=== PATIENT | female | born 1995 | race Caucasian/White ===

== ENCOUNTER 2017-12-23 22:12 | Emergency (ER) | payer SELFPAY ==
--- NOTE | 2017-12-23 22:38 | EDM.PDOC ---
ED HPI GENERAL MEDICAL PROBLEM - General Chief Complaint: Chest Pain Stated Complaint: PT HAS TIGHTNESS IN CHEST Time Seen by Provider: 12/23/17 22:36 - History of Present Illness INITIAL COMMENTS - FREE TEXT/NARRATIVE: HISTORY AND PHYSICAL: History of present illness: Patient is a 22-year-old female presents with concern of chest pain described as sharp without associated shortness breath palpitations nausea vomiting or diaphoresis she denies any trauma or other concern. Review of systems: As per history of present illness and below otherwise all systems reviewed and negative. Past medical history: As per history of present illness and as reviewed below otherwise noncontributory. Surgical history: As per history of present illness and as reviewed below otherwise noncontributory. Social history: No reported history of drug or alcohol abuse. Family history: As per history of present illness and as reviewed below otherwise noncontributory. Physical exam: HEENT: Atraumatic, normocephalic, pupils reactive, negative for conjunctival pallor or scleral icterus, mucous membranes moist, throat clear, neck supple, nontender, trachea midline. Lungs: Clear to auscultation, breath sounds equal bilaterally, chest nontender. Heart: S1S2, regular, negative for clicks, rubs, or JVD. Abdomen: Soft, nondistended, nontender. Negative for masses or hepatosplenomegaly. Negative for costovertebral tenderness. Pelvis: Stable nontender. Genitourinary: Deferred. Rectal: Deferred. Extremities: Atraumatic, negative for cords or calf pain. Neurovascular unremarkable. Neuro: Awake, alert, oriented. Cranial nerves II through XII unremarkable. Cerebellum unremarkable. Motor and sensory unremarkable throughout. Exam nonfocal. Diagnostics: Chest x-ray EKG Therapeutics: None Impression: #1 atypical chest pain Definitive disposition and diagnosis as appropriate pending reevaluation and review of above. Chest Pain Score (Numeric/FACES): 7 - Related Data Allergies Allergy/AdvReac Type Severity Reaction Status Date / Time No Known Allergies Allergy Verified 12/23/17 22:14 Home Meds: Home Meds . [No Known Home Meds] 12/23/17 [History] Past Medical History - Past Health History Medical/Surgical History: Denies Medical/Surgical History Social & Family History - Tobacco Use Smoking Status *Q: Never Smoker ED ROS GENERAL - Review of Systems Review Of Systems: ROS reveals no pertinent complaints other than HPI. ED EXAM, GENERAL - Physical Exam Exam: See Below (See dictation) Course - Vital Signs Last Recorded V/S: Last Vital Signs Temp 36.9 C 12/23/17 22:20 Pulse 84 12/23/17 22:20 Resp 18 12/23/17 22:20 BP 148/96 H 12/23/17 22:20 Pulse Ox 97 12/23/17 22:20 - Orders/Labs/Meds Orders: Active Orders 24 hr Category Date Time Status Chest 1V Frontal [CR] Stat Exams 12/23/17 22:24 Ordered Departure - Departure Time of Disposition: 22:37 Disposition: Home, Self-Care 01 Condition: Good Clinical Impression: Atypical chest pain - Discharge Information *PRESCRIPTION DRUG MONITORING PROGRAM REVIEWED*: Not Applicable *COPY OF PRESCRIPTION DRUG MONITORING REPORT IN PATIENT DEE: Not Applicable Referrals: PCP,None [Primary Care Provider] - Additional Instructions: The following information is given to patients seen in the emergency department who are being discharged to home. This information is to outline your options for follow-up care. We provide all patients seen in our emergency department with a follow-up referral. The need for follow-up, as well as the timing and circumstances, are variable depending upon the specifics of your emergency department visit. If you don't have a primary care physician on staff, we will provide you with a referral. We always advise you to contact your personal physician following an emergency department visit to inform them of the circumstance of the visit and for follow-up with them and/or the need for any referrals to a consulting specialist. The emergency department will also refer you to a specialist when appropriate. This referral assures that you have the opportunity for followup care with a specialist. All of these measure are taken in an effort to provide you with optimal care, which includes your followup. Under all circumstances we always encourage you to contact your private physician who remains a resource for coordinating your care. When calling for followup care, please make the office aware that this follow-up is from your recent emergency room visit. If for any reason you are refused follow-up, please contact the [facility] emergency department at and asked to speak to the emergency department charge nurse. Motrin/Tylenol as directed follow-up primary medical doctor as needed as discussed and return as needed as discussed - My Orders Last 24 Hours: My Active Orders 12/23/17 22:24 Chest 1V Frontal [CR] Stat - Assessment/Plan Last 24 Hours: My Active Orders 12/23/17 22:24 Chest 1V Frontal [CR] Stat
[2017-12-23 23:38] LABS: CHLORIDE,CL 107 mmol/L (98-107); SODIUM,NA 140 mmol/L (136-145)
[2017-12-24] MEDS ORDERED: Iopamidol 755 MG/ML 200 ML Multipack Bottle IVPUSH ONE (00:14)
--- NOTE | 2017-12-24 08:58 | CR ---
EXAM DATE: 12/23/17 PATIENT'S AGE: 22 Patient: MAIRLYN REED Facility: [place], [place] Site . Site : 1995 Study: XRay Chest [id number]/22/2018 10:45:29 PM Ordering Physician: Doctor Johnson Final Report: INDICATION: Chest pain TECHNIQUE: Chest radiograph 1 view COMPARISON: None FINDINGS: Mediastinum: The mediastinum is normal in appearance. The heart silhouette is normal in size and morphology. Lung: Both lungs are unremarkable in appearance. Mild enlargement of the central pulmonary vessels noted. No sign of pleural effusion seen. No pneumothorax is identified. Musculoskeletal: Unremarkable for age. IMPRESSION: 1. Mild enlargement of the central pulmonary vessels noted. Pulmonary vascular congestion or hypertension should be considered. Dictated by: Deejay Joe MD @ 12/23/2017 22:47:34 (Electronic Signature) Report Signed by Proxy. HAYLEY
--- NOTE | 2017-12-24 08:59 | CT ---
EXAM DATE: 12/23/17 PATIENT'S AGE: 22 Patient: MARILYN REED Facility: [place], [place] Site . Site : 1995 Study: CT Chest Angio [id number]/23/2018 12:12:50 AM Ordering Physician: Ana Hopkins Final Report: INDICATION: Shortness of breath, Chest pain TECHNIQUE: CT chest with i.v. contrast using pulmonary angiographic technique. Coronal and sagittal reformats were obtained. CONTRAST: 50 mL Isovue 370 COMPARISON: None FINDINGS: Cardiovascular: The pulmonary arteries are unremarkable in enhancement with no evidence of acute pulmonary embolism. The heart has an unremarkable appearance and size. No sign of aneurysm or dissection in the thoracic aorta. Mediastinum: No mass or adenopathy seen. Lung: There is a 3 mm nodule present in the anterior right middle lobe, too small to further characterize. Pleura and pericardium: No sign of pleural effusion seen. No significant pericardial effusion is present. Chest wall and axilla: Mild left axillary adenopathy seen with lymph nodes measuring up to 1 cm. Bone: Unremarkable for age. Upper abdomen: Severe fatty infiltration of the visualized liver is noted. IMPRESSIONS: 1. No CT evidence of pulmonary emboli seen. 2. Severe fatty infiltration of the visualized liver is noted. 3. Mild left axillary adenopathy seen with lymph nodes measuring up to 1 cm. Dictated by Deejay Joe MD @ 12/24/2017 12:26:14 AM Please note that all CT scans at this facility use dose modulation, iterative reconstruction, and/or weight-based dosing when appropriate to reduce radiation dose to as low as reasonably achievable. Dictated by: Deejay Joe MD @ 12/24/2017 00:26:19 (Electronic Signature) Report Signed by Proxy. [facility]
== END 2017-12-24 01:25 | disposition home or self-care (01) ==
LOC: MW.ED 22:12
DX: R07.89 Other chest pain (principal)
CPT/HCPCS: 36415; 71045; 71275; 80053; 81025; 83880; 85025; 93005; 99285; Q9967; 99282

== ENCOUNTER 2020-02-07 06:39 | Day surgery (SDC) | payer OTHER ==
[2020-02-07] MEDS ORDERED: fentaNYL 100 MCG/2 ML SDV ONE (07:20)
[2020-02-07] MEDS ORDERED: Propofol 200 MG/20 ML SDV ONE (07:20)
[2020-02-07] MEDS ORDERED: Midazolam 1 MG/ML 2 ML SDV ONE (07:20)
[2020-02-07] MEDS ORDERED: Lidocaine 2% 5 ML SDV ONE (07:23)
--- NOTE | 2020-02-07 07:32 | PCM.PREANE ---
Preanesthetic Assessment - Anesthesia/Transfusion/Family Hx Anesthesia History: Prior Anesthesia Without Reaction Family History of Anesthesia Reaction: No Transfusion History: No Prior Transfusion(s) - Review of Systems General: No Symptoms Pulmonary: No Symptoms Cardiovascular: No Symptoms Gastrointestinal: No Symptoms Neurological: No Symptoms Other: Reports: None - Physical Assessment NPO Status Date: 02/06/20 Vital Signs: Last Vital Signs Temp 97.0 F 02/07/20 06:50 Pulse 88 02/07/20 06:50 Resp 16 02/07/20 06:50 BP 140/85 02/07/20 06:50 Pulse Ox 98 02/07/20 06:50 Height: 5 ft 6 in Weight: 89.811 kg ASA Class: 2 Mental Status: Alert & Oriented x3 Airway Class: Mallampati = 1 Dentition: Reports: Normal Dentition ROM/Head Extension: Full Lungs: Clear to Auscultation, Normal Respiratory Effort Cardiovascular: Regular Rate, Regular Rhythm - Lab Values: Laboratory Last Values WBC 7.60 K/uL (4.0-11.0) 02/07/20 07:12 RBC 4.57 M/uL (4.30-5.90) 02/07/20 07:12 Hgb 13.5 g/dL (12.0-16.0) 02/07/20 07:12 Hct 40.9 % (36.0-46.0) 02/07/20 07:12 MCV 89.5 fL (80.0-98.0) 02/07/20 07:12 MCH 29.5 pg (27.0-32.0) 02/07/20 07:12 MCHC 33.0 g/dL (31.0-37.0) 02/07/20 07:12 RDW Std Deviation 41.3 fl (28.0-62.0) 02/07/20 07:12 RDW Coeff of Angie 13 % (11.0-15.0) 02/07/20 07:12 Plt Count 203 K/uL (150-400) 02/07/20 07:12 MPV 11.40 fL (7.40-12.00) 02/07/20 07:12 Neut % (Auto) 43.9 % (48.0-80.0) L 02/07/20 07:12 Lymph % (Auto) 43.7 % (16.0-40.0) H 02/07/20 07:12 [place] % (Auto) 9.2 % (0.0-15.0) 02/07/20 07:12 Eos % (Auto) 2.8 % (0.0-7.0) 02/07/20 07:12 Baso % (Auto) 0.4 % (0.0-1.5) 02/07/20 07:12 Neut # (Auto) 3.3 K/uL (1.4-5.7) 02/07/20 07:12 Lymph # (Auto) 3.3 K/uL (0.6-2.4) H 02/07/20 07:12 [place] # (Auto) 0.7 K/uL (0.0-0.8) 02/07/20 07:12 Eos # (Auto) 0.2 K/uL (0.0-0.7) 02/07/20 07:12 Baso # (Auto) 0.0 K/uL (0.0-0.1) 02/07/20 07:12 Nucleated RBC % 0.0 /100WBC 02/07/20 07:12 Nucleated RBCs # 0 K/uL 02/07/20 07:12 - Allergies Allergies/Adverse Reactions: Allergies Allergy/AdvReac Type Severity Reaction Status Date / Time amoxicillin [From Augmentin] Allergy Stomach Verified 02/01/20 09:38 Upset clavulanic acid Allergy Stomach Verified 02/01/20 09:38 [From Augmentin] Upset - Blood Blood Available: No - Anesthesia Plan Pre-Op Medication Ordered: None - Acknowledgements Anesthesia Type Planned: General Anesthesia Pt an Appropriate Candidate for the Planned Anesthesia: Yes Alternatives and Risks of Anesthesia Discussed w Pt/Guardian: Yes Pt/Guardian Understands and Agrees with Anesthesia Plan: Yes PreAnesthesia Questionnaire - Past Health History Medical/Surgical History: Denies Medical/Surgical History HEENT History: Reports: Other (See Below) Other HEENT History: wears glasses/contacts Cardiovascular History: Reports: None Respiratory History: Reports: None Gastrointestinal History: Reports: None Genitourinary History: Reports: None [employer] History: Reports: None Musculoskeletal History: Reports: None Neurological History: Reports: Migraines Psychiatric History: Reports: None Endocrine/Metabolic History: Reports: Obesity/BMI 30+ Hematologic History: Reports: None Immunologic History: Reports: None Oncologic (Cancer) History: Reports: None Dermatologic History: Reports: None - Past Surgical History Head Surgeries/Procedures: Reports: None HEENT Surgical History: Reports: Tonsillectomy Cardiovascular Surgical History: Reports: None Respiratory Surgical History: Reports: None GI Surgical History: Reports: None Female Surgical History: Reports: Breast Biopsy Endocrine Surgical History: Reports: None Neurological Surgical History: Reports: None Musculoskeletal Surgical History: Reports: Arthroscopic Knee, Other (See Below) Other Musculoskeletal Surgeries/Procedures:: right knee arthroscopy, excision cyst on left wrist Oncologic Surgical History: Reports: None Dermatological Surgical History: Reports: None - SUBSTANCE USE Smoking Status *Q: Never Smoker - HOME MEDS Home Medications: Home Meds desogestreL-ethinyl estradioL [Noveber 28 Day Tablet] 1 tab PO DAILY 02/01/20 [History] - CURRENT (IN HOUSE) MEDS Current Meds: Current Medications Discontinued Medications Fentanyl (Sublimaze) Confirm Administered Dose 100 mcg .ROUTE .STK-MED ONE Stop: 02/07/20 07:21 Lidocaine (Xylocaine-Mpf 2%) Confirm Administered Dose 5 ml .ROUTE .STK-MED ONE Stop: 02/07/20 07:24 Midazolam HCl (Versed 1 Mg/Ml) Confirm Administered Dose 2 mg .ROUTE .STK-MED ONE Stop: 02/07/20 07:21 Propofol (Diprivan 20 Ml) Confirm Administered Dose 400 mg .ROUTE .STK-MED ONE Stop: 02/07/20 07:21
[2020-02-07] MEDS ORDERED: Lactated Ringers 1,000 ML IV SCH (08:15)
[2020-02-07] MEDS ORDERED: Dexamethasone 4 MG/ML 5 ML MDV ONE (08:32)
[2020-02-07] MEDS ORDERED: Ondansetron 4 MG/2 ML SDV ONE (08:32)
[2020-02-07] MEDS ORDERED: Ketorolac 30 MG/ML SDV ONE (08:32)
[2020-02-07] MEDS ORDERED: Acetaminophen/HYDROcodone 325-5 MG Tab PO PRN (09:21)
--- NOTE | 2020-02-07 09:29 | PCM.OPNOTE ---
- General Post-Op/Procedure Note Date of Surgery/Procedure: 02/07/20 Operative Procedure(s): Hysteroscopy Dilatation and curettage. Removal of endometrial lesion Findings: Normal sized anteverted uterus Hysteroscopy showed a small fluffy tissue protruding from the endometrial cavity 375ml fluid deficit Pre Op Diagnosis: Abnormal uterine bleeding Post-Op Diagnosis: Abnormal uterine bleeding Anesthesia Technique: General ET Tube Primary Surgeon: Eda Manley Anesthesia Provider: Eirc Rizo Pathology: Endometrial lesion Endometrial curettings Fluid Replacement, Intraop: 900 EBL in mLs: 5 Complications: none Condition: Good Free Text/Narrative:: Intake & Output 02/06/20 02/07/20 02/07/20 22:59 06:59 14:59 Intake Total 950 Balance 950
[2020-02-07] MEDS ORDERED: Haloperidol Lactate 5 MG/ML SDV IM ONE (10:00)
[2020-02-07] MEDS ORDERED: Haloperidol Lactate 5 MG/ML SDV ONE (10:09)
--- NOTE | 2020-02-07 10:44 | PCM.POSTAN ---
POST ANESTHESIA ASSESSMENT - MENTAL STATUS Mental Status: Alert, Oriented - VITAL SIGNS Vital Signs: Last Vital Signs Temp 97.0 F 02/07/20 09:15 Pulse 74 02/07/20 09:45 Resp 16 02/07/20 09:45 BP 119/74 02/07/20 09:45 Pulse Ox 98 02/07/20 09:45 - RESPIRATORY Respiratory Status: Respiratory Rate WNL, Airway Patent, O2 Saturation Stable - CARDIOVASCULAR CV Status: Pulse Rate WNL, Blood Pressure Stable - GASTROINTESTINAL GI Status: No Symptoms - POST OP HYDRATION Hydration Status: Adequate & Stable
--- NOTE | 2020-02-07 11:00 | PCM48HPAN ---
Post Anesthesia Note - EVALUATION WITHIN 48HRS OF ANESTHETIC Vital Signs in Normal Range: Yes Patient Participated in Evaluation: Yes Respiratory Function Stable: Yes Airway Patent: Yes Cardiovascular Function Stable: Yes Hydration Status Stable: Yes Pain Control Satisfactory: Yes Nausea and Vomiting Control Satisfactory: Yes Mental Status Recovered: Yes Vital Signs: Last Vital Signs Temp 97.0 F 02/07/20 09:15 Pulse 74 02/07/20 09:45 Resp 16 02/07/20 09:45 BP 119/74 02/07/20 09:45 Pulse Ox 98 02/07/20 09:45
--- NOTE | 2020-02-08 09:59 | OR ---
SURGEON: MICHELLE HEALY DATE OF PROCEDURE: 02/07/2020 PREOPERATIVE DIAGNOSIS: A 24-year-old, G0, P0, with abnormal uterine bleeding. POSTOPERATIVE DIAGNOSIS: Abnormal uterine bleeding secondary to endometrial polyp. PROCEDURES: Hysteroscopy, D and C, removal of endometrial lesion with MyoSure hysteroscope. FLUID DEFICIT: 375 NS. ANESTHESIA: General. ESTIMATED BLOOD LOSS: 5. COMPLICATION: None. FINDINGS: Examination under anesthesia yielded a normal-sized anteverted uterus. Hysteroscopy showed a fluffy-like lesion protruding from the posterior uterine wall. Otherwise, normal endometrial cavity. Bilateral ostia were visualized. BRIEF HISTORY: She is a 24-year-old who came in complaining of abnormal uterine bleeding. She had exams done and the ultrasound showed abnormal endometrium. Saline ultrasound done and this showed a possible polypoid lesion in the uterus. As a result of this, she was counseled for hysteroscopy, removal of the endometrial polyp, which she accepted. She was explained the risks, benefits, and alternatives and she decided to proceed. PROCEDURE IN DETAIL: The patient was taken to the operating room where general anesthesia was performed without difficulty. She was prepared and draped in the dorsal lithotomy position with Dread stirrups. Speculum was used to expose the cervix. The cervix was grasped with the Allis clamp and was dilated to accommodate the MyoSure hysteroscope. Upon entry into the uterus, the MyoSure hysteroscope was inserted into the uterus via the cervix. The fluffy lesion was noted and was removed with the MyoSure under direct visualization. MyoSure was then removed. Then, a size 3 curette was used to obtain endometrial curetting, which was done without any difficulty. Then, the Allis was removed. All instrument and pad counts were correct x2. Fluid deficit is 375. The patient tolerated the procedure well and was taken to recovery room in stable condition. TIM / ANIKA /[id number] MTDD
== END 2020-02-07 11:00 | disposition home or self-care (01) ==
LOC: MW.SDS 06:39
PROVIDERS: ATTEND Obstetrics & Gynecology
DX: N84.0 Polyp of corpus uteri (principal); Z79.899 Other long term (current) drug therapy; Z98.890 Other specified postprocedural states; Z84.0 Family history of diseases of the skin and subcutaneous tissue; Z01.812 Encounter for preprocedural laboratory examination; Z20.828 Contact with and (suspected) exposure to other viral communicable diseases
CPT/HCPCS: 36415; 58558; 84703; 85025; J1100; J1630; J1885; J2001; J2250; J2405; J2704; J3010; J7120; 00952; 88305

== ENCOUNTER 2021-04-10 14:22 | Emergency (ER) | payer OTHER ==
[2021-04-10] MEDS ORDERED: Ondansetron 4 MG Tab.DIS PO ONE (14:51)
--- NOTE | 2021-04-10 15:40 | CT ---
INDICATION: Nausea and vomiting following posterior head trauma TECHNIQUE: CT head without contrast. COMPARISON: None FINDINGS: CSF spaces: Within normal limits for age. Brain parenchyma: The santoyo-white differentiation is normal. No sign of mass, hemorrhage, or midline shift. Skull base and calvarium: The visualized paranasal sinuses and mastoid air cells demonstrate no acute or significant findings. The visualized orbits are grossly unremarkable. No skull fractures. IMPRESSION: Unremarkable noncontrast head CT. Please note that all CT scans at this facility use dose modulation, iterative reconstruction, and/or weight-based dosing when appropriate to reduce radiation dose to as low as reasonably achievable. Dictated by Marty Mondragon MD @ 04/10/2021 3:39:37 PM (Electronically Signed)
--- NOTE | 2021-04-10 15:44 | EDM.PDOC ---
ED HPI GENERAL MEDICAL PROBLEM - General Chief Complaint: Head Injury Stated Complaint: FELL AND HIT HEAD Time Seen by Provider: 04/10/21 14:25 Source of Information: Reports: Patient History Limitations: Reports: No Limitations - History of Present Illness INITIAL COMMENTS - FREE TEXT/NARRATIVE: HISTORY AND PHYSICAL: History of present illness: Patient is a 25-year-old female presents emergency room today with concern of head injury that occurred last night. Patient states that she was going into take a shower and states that she had her 1 foot in the shower and slipped b ackwards. Patient states she hit the left side of her head against the toilet and states that it did break the toilet. Patient states that she did not lose consciousness during the event but when she sat up was immediately dizzy and lightheaded. Patient states that she went to bed dizzy and states that she continued to wake up feeling dizzy and has had 3-4 episodes of vomiting since. Patient states that she was trying to go to the clinic but they instructed her to come here to the emergency room. Patient denies fever, chills, chest pain, shortness of breath, or cough. Denies headache, neck stiff ness, change in vision, syncope, or near syncope. Denies abdominal pain, diarrhea, constipation, or dysuria. Has not noted any blood in urine or stool. Patient has been eating and drinking appropriately. Review of systems: As per history of present illness and below otherwise all systems reviewed and negative. Past medical history: As per history of present illness and as reviewed below otherwise noncontributory. Surgical history: As per history of present illness and as reviewed below otherwise noncontributory. Social history: See social history for further information Family history: As per history of present illness and as reviewed below otherwise noncontributory. Physical exam: General: Patient is alert, oriented, and in no acute distress. Patient sitting comfortably on exam table. Vitals stable and reviewed by me. HEENT: Patient does have some tenderness overlying the left sided occipital scalp without underlying hematoma or laceration. Otherwise, atraumatic, normocephalic, pupils equal and reactive bilaterally, negative for conjunctival pallor or scleral icterus, mucous membranes moist, throat clear, neck supple, nontender, trachea midline. No drooling or trismus noted. No meningeal signs. No hot potato voice noted. Lungs: Clear to auscultation, breath sounds equal bilaterally, chest nontender. Heart: S1S2, regular rate and rhythm without overt murmur Abdomen: Soft, nondistended, nontender. Negative for masses or hepatosplenomegaly. Negative for costovertebral tenderness. Pelvis: Stable nontender. Genitourinary: Deferred. Rectal: Deferred. Skin: Intact, warm, dry. No lesions or rashes noted. Extremities: No obvious deformity of the complete spine. No step-offs, crepitus, or point tenderness to palpation of the complete spine. Atraumatic, negative for cords or calf pain. Neurovascular unremarkable. Neuro: Awake, alert, oriented. Cranial nerves II through XII unremarkable. Cerebellum unremarkable. Motor and sensory unremarkable throughout. Exam nonfocal. Medical Decision Making: Following therapeutics, patient has great resolution of her symptoms today in the emergency room. She does not have any additional episodes of vomiting and remains otherwise well-appearing on exam. Patient remains vitally stable and comfortable. Strict return precautions thoroughly discussed with patient. Head injury precautions and concussion care thoroughly discussed with patient. Discussed importance for close follow-up with a primary care provider. Voices understanding and is agreeable to plan of care. Denies any further questions or concerns at this time. Diagnostics: Head CT without contrast Therapeutics: Zofran Prescription: Zofran Impression: Head injury Concussion syndrome Plan: 1. Take medication as prescribed. [facility] 2. You can alternate ibuprofen and Tylenol as directed for pain and discomfort. 3. Follow-up with a primary care provider as discussed. Return to the ED as needed and as discussed. Definitive disposition and diagnosis as appropriate pending reevaluation and review of above. head Pain Score (Numeric/FACES): 7 - Related Data Allergies Allergy/AdvReac Type Severity Reaction Status Date / Time amoxicillin [From Augmentin] Allergy Stomach Verified 04/10/21 14:30 Upset clavulanic acid Allergy Stomach Verified 04/10/21 14:30 [From Augmentin] Upset Home Meds: Home Meds desogestreL-ethinyl estradioL [Haily 28 Day Tablet] 1 tab PO DAILY 02/01/20 [History] Ondansetron [Zofran ODT] 4 mg PO Q6H PRN #8 tab.dis 12/08/21 [Rx] Past Medical History - Past Health History Medical/Surgical History: Denies Medical/Surgical History HEENT History: Reports: Other (See Below) Other HEENT History: wears glasses/contacts Cardiovascular History: Reports: None Respiratory History: Reports: None Gastrointestinal History: Reports: None Genitourinary History: Reports: None CREATIVE RECRUITER History: Reports: None Musculoskeletal History: Reports: None Neurological History: Reports: Migraines Psychiatric History: Reports: None Endocrine/Metabolic History: Reports: Obesity/BMI 30+ Hematologic History: Reports: None Immunologic History: Reports: None Oncologic (Cancer) History: Reports: None Dermatologic History: Reports: None - Infectious Disease History Infectious Disease History: Reports: None - Past Surgical History Head Surgeries/Procedures: Reports: None HEENT Surgical History: Reports: Tonsillectomy Cardiovascular Surgical History: Reports: None Respiratory Surgical History: Reports: None GI Surgical History: Reports: None Female Surgical History: Reports: Breast Biopsy Endocrine Surgical History: Reports: None Neurological Surgical History: Reports: None Musculoskeletal Surgical History: Reports: Arthroscopic Knee, Other (See Below) Other Musculoskeletal Surgeries/Procedures:: right knee arthroscopy, excision cyst on left wrist Oncologic Surgical History: Reports: None Dermatological Surgical History: Reports: None Social & Family History - Family History Family Medical History: No Pertinent Family History - Caffeine Use Caffeine Use: Reports: None - Recreational Drug Use Recreational Drug Use: No ED ROS GENERAL - Review of Systems Review Of Systems: Comprehensive ROS is negative, except as noted in HPI. ED EXAM, HEAD INJURY - Physical Exam Exam: See Below (see dictation) Course - Vital Signs Last Recorded V/S: Last Vital Signs Temp 97.2 F 04/10/21 14:28 Pulse 111 H 04/10/21 14:28 Resp 18 04/10/21 14:28 BP 162/91 H 04/10/21 14:28 Pulse Ox 97 04/10/21 14:28 - Orders/Labs/Meds Meds: Medications Discontinued Medications Generic Name Dose Route Start Last Admin Trade Name Freq PRN Reason Stop Dose Admin Ondansetron HCl 4 mg 04/10/21 14:51 04/10/21 15:03 Ondansetron 4 Mg Tab.Dis PO 04/10/21 14:52 4 mg ONETIME ONE Administration Departure - Departure Time of Disposition: 15:43 Disposition: Home, Self-Care 01 Clinical Impression: Head injury, Concussion - Discharge Information Prescriptions: Ondansetron [Zofran ODT] 4 mg PO Q6H PRN #8 tab.dis PRN Reason: Nausea/Vomiting Instructions: Concussion, Adult, [id number], Head Injury, Adult, [id number] Referrals: PCP,None [Primary Care Provider] - Forms: ED Department Discharge Additional Instructions: The following information is given to patients seen in the emergency department who are being discharged to home. This information is to outline your options for follow-up care. We provide all patients seen in our emergency department with a follow-up referral. The need for follow-up, as well as the timing and circumstances, are variable depending upon the specifics of your emergency department visit. If you don't have a primary care physician on staff, we will provide you with a referral. We always advise you to contact your personal physician following an emergency department visit to inform them of the circumstance of the visit and for follow-up with them and/or the need for any referrals to a consulting specialist. The emergency department will also refer you to a specialist when appropriate. This referral assures that you have the opportunity for follow-up care with a specialist. All of these measure are taken in an effort to provide you with optimal care, which includes your follow-up. Under all circumstances we always encourage you to contact your private physician who remains a resource for coordinating your care. When calling for follow-up care, please make the office aware that this follow-up is from your recent emergency room visit. If for any reason you are refused follow-up, please contact the [facility] Emergency Department at and asked to speak to the emergency department charge nurse. [facility] [address] [place] [id number] [address] [id number] 1. Take medication as prescribed. [facility] 2. You can alternate ibuprofen and Tylenol as directed for pain and discomfort. 3. Follow-up with a primary care provider as discussed. Return to the ED as needed and as discussed. Sepsis Event Note (ED) - Evaluation Sepsis Screening Result: No Definite Risk - Focused Exam Vital Signs: Vital Signs Temp Pulse Resp BP Pulse Ox 04/10/21 14:28 97.2 F 111 H 18 162/91 H 97
== END 2021-04-10 16:00 | disposition home or self-care (01) ==
LOC: MW.ED 14:22
DX: S09.90XA Unspecified injury of head, initial encounter (principal); F07.81 Postconcussional syndrome; E66.9 Obesity, unspecified; Z68.38 Body mass index [BMI] 38.0-38.9, adult; Z88.0 Allergy status to penicillin; W01.198A Fall on same level from slipping, tripping and stumbling with subsequent striking against other object, initial encounter; Y92.002 Bathroom of unspecified non-institutional (private) residence as the place of occurrence of the external cause
CPT/HCPCS: 70450; 99283; A9270